=== PATIENT | female | born 1985 | race Caucasian/White ===

== ENCOUNTER 2018-07-04 08:57 | Emergency (ER) | payer OTHER ==
[2018-07-04] MEDS ORDERED: SODIUM CHLORIDE 0.9% 1,000 ML IV ONE (09:19)
--- NOTE | 2018-07-04 09:21 | ED Physician Documentation ---
History of Present Illness - Stated complaint Stated Complaint: SYNCOPE - Chief complaint Chief Complaint: Neuro - Additonal information Additional information: hx from pt 33 f denies preg has an IUD recent fever chills myalgias flu like sx at work today walking around the [employer] and felt faint sat down did have brief syncope no injury was witnessed no reported loss of breathing pulse denies AH CP AP no NVD ate breakfast (cinnamon roll) has been drinking fluids no recent travel no leg swelling pain Review of Systems Constitutional: reports: Fever, Chills, Myalgias, Fatigue Throat: denies: Sore throat Respiratory: denies: Cough GI: denies: Abdominal Pain, Nausea, Vomiting, Diarrhea : reports: Control (IUD). denies: Now EGA Neurologic: reports: Generalized weakness, Syncope. denies: Focal weakness, Numbness, Seizure, Headache, Head injury Endocrine: denies: Easy bruising / bleeding Immunocompromised: denies: Immunocompromised PD PAST MEDICAL HISTORY - Allergies Allergies/Adverse Reactions: Allergies Allergy/AdvReac Type Severity Reaction Status Date / Time bupropion [From Wellbutrin] Allergy Hallucinati Verified 07/04/18 09:05 ons PD ED PE NORMAL - Vitals Vital signs reviewed: Yes - General General: Alert and oriented X 3 - HEENT HEENT: Atraumatic, PERRL, Moist mucous membranes, Pharynx benign - Neck Neck: Supple, no meningeal sign - Cardiac Cardiac: RRR, No murmur - Respiratory Respiratory: No respiratory distress, Clear bilaterally - Abdomen Abdomen: Non tender - Derm Derm: Normal color - Extremities Extremities: No edema, No calf tenderness / cord - Neuro Neuro: Alert and oriented X 3 Results - Vitals Vitals: Vital Signs - 24 hr 07/04/18 07/04/18 09:03 10:35 Temperature 36.8 C Heart Rate 88 74 Respiratory 18 17 Rate Blood Pressure 103/54 L 105/68 O2 Saturation 100 100 Oxygen O2 Source Room air - EKG (time done) 0910 Rate: Rate (enter#) (79) Rhythm: NSR Intervals: Normal FL QRS: Normal Ischemia: Normal ST segments - Labs Labs: Laboratory Tests 07/04/18 07/04/18 07/04/18 09:16 09:20 09:20 WBC 11.6 H RBC 4.28 Hgb 12.7 Hct 37.7 MCV 88.2 MCH 29.6 MCHC 33.5 RDW 13.3 Plt Count 237 MPV 8.3 Neut # (Auto) 9.4 H Lymph # (Auto) 1.2 L [place] # (Auto) 0.9 Eos # (Auto) 0.1 Baso # (Auto) 0.0 Absolute Nucleated RBC 0.00 Nucleated RBC % 0.0 Sodium 133 L Potassium 3.3 L Chloride 104 Carbon Dioxide 23 Anion Gap 6.0 BUN 12 Creatinine 0.7 Estimated GFR (MDRD) 98 Glucose 155 H POC Whole Bld Glucose 154 H Calcium 8.5 Total Bilirubin 0.3 AST 31 ALT 37 Alkaline Phosphatase 57 Total Protein 7.2 Albumin 4.2 Globulin 3.0 Albumin/Globulin Ratio 1.4 Lipase 19 L Serum HCG, Qual Urine Color Urine Clarity Urine pH Ur Specific [place] Urine Protein Urine Glucose (UA) Urine Ketones Urine Occult Blood Urine Nitrite Urine Bilirubin Urine Urobilinogen Ur Leukocyte Esterase Urine RBC Urine WBC Ur Squamous Epith Cells Urine Bacteria Urine Mucus Ur Microscopic Review Urine Culture Comments Urine HCG, Qual Influenza A (Rapid) Influenza B (Rapid) 07/04/18 07/04/18 07/04/18 09:20 09:20 10:50 WBC RBC Hgb Hct MCV MCH MCHC RDW Plt Count MPV Neut # (Auto) Lymph # (Auto) [place] # (Auto) Eos # (Auto) Baso # (Auto) Absolute Nucleated RBC Nucleated RBC % Sodium Potassium Chloride Carbon Dioxide Anion Gap BUN Creatinine Estimated GFR (MDRD) Glucose POC Whole Bld Glucose Calcium Total Bilirubin AST ALT Alkaline Phosphatase Total Protein Albumin Globulin Albumin/Globulin Ratio Lipase Serum HCG, Qual NEGATIVE Urine Color BROWN Urine Clarity SL. CLOUDY Urine pH 6.5 Ur Specific [place] 1.010 Urine Protein 30 H Urine Glucose (UA) NEGATIVE Urine Ketones NEGATIVE Urine Occult Blood LARGE H Urine Nitrite NEGATIVE Urine Bilirubin NEGATIVE Urine Urobilinogen 0.2 (NORMAL) Ur Leukocyte Esterase TRACE H Urine RBC 11-25 H Urine WBC 11-25 H Ur Squamous Epith Cells MANY Squamous H Urine Bacteria Few Urine Mucus Few Strands Ur Microscopic Review INDICATED Urine Culture Comments NOT INDICATED Urine HCG, Qual NEGATIVE Influenza A (Rapid) Negative Influenza B (Rapid) Negative PD MEDICAL DECISION MAKING - ED course ED course: EKG fine neg HCG urine contaminated (on menses) nl labs no anemia nl lytes etc pt feels fine now will dc to rest today if recurrent sx next steps would be event monitor and echo Departure - Departure Disposition: Home, Self Care Clinical Impression: Syncope Qualifiers: Syncope type: unspecified Qualified Code(s): R55 - Syncope and collapse Condition: Good Instructions: ED Fainting Unkn Cause Follow-Up: GEOFF Michelle [Provider Group] Comments: All your tests came back fine Your heart is in a normal rhythm You are not You are not anemic Your electrolytes are fine I am not sure why you passed out today Sometimes with standing and walking ones blood pressure can drop and cause fainting. I think it is safe for you to go home. Recommend you rest and take it easy for the rest of the day. If you have more similar symptoms in the future you will need further work up beyond what we can do in an ER visit - such as a wear at home heart monitor and an ultrasound of your heart Please follow up with [facility] for a recheck and duty status tomorrow
[2018-07-04 09:30] LABS: BASOPHILS % (AUTO) 0.4 %; EOSINOPHILS # (AUTO) 0.1 10^3/uL (0.0-0.7); EOSINOPHILS % (AUTO) 1.1 %; HGB - HEMOGLOBIN 12.7 g/dL (12.0-16.0); LYMPHOCYTES # (AUTO) 1.2 10^3/uL (1.5-3.5); LYMPHOCYTES % (AUTO) 10.1 %; MEAN CORPUSCULAR HEMOGLOBIN 29.6 pg (27.0-31.0); MEAN CORPUSCULAR HGB CONC 33.5 g/dL (32.0-36.0); MEAN CORPUSCULAR VOLUME 88.2 fL (81.0-99.0); MEAN PLATELET VOLUME 8.3 fL (7.9-10.8); MONOCYTES # (AUTO) 0.9 10^3/uL (0.0-1.0); MONOCYTES % (AUTO) 7.9 %; NEUTROPHILS # (AUTO) 9.4 10^3/uL (1.5-6.6); NEUTROPHILS % (AUTO) 80.5 %; PLT - PLATELET COUNT 237 10^3/uL (130-450); RED BLOOD COUNT 4.28 10^6/uL (4.20-5.40); RED CELL DISTRIBUTION WIDTH 13.3 % (12.0-15.0); WHITE BLOOD COUNT 11.6 x10^3/uL (4.8-10.8)
[2018-07-04 09:43] LABS: ALBUMIN 4.2 g/dL (3.2-5.5); ALBUMIN/GLOBULIN RATIO 1.4 (1.0-2.2); BILIRUBIN,TOTAL 0.3 mg/dL (0.2-1.0); CALCIUM 8.5 mg/dL (8.5-10.3); CREATININE 0.7 mg/dL (0.4-1.0); TOTAL PROTEIN 7.2 g/dL (6.7-8.2)
[2018-07-04 10:57] LABS: BILIRUBIN,URINE NEGATIVE (NEGATIVE); GLUCOSE, URINE (UA) NEGATIVE (NEGATIVE); KETONES,URINE (UA) NEGATIVE (NEGATIVE); LEUKOCYTE ESTERASE, URINE TRACE (NEGATIVE); NITRITE,URINE NEGATIVE (NEGATIVE); OCCULT BLOOD,URINE LARGE (NEGATIVE); PH,URINE 6.5 PH (5.0-7.5); PROTEIN,URINE 30 mg/dL (NEGATIVE); UROBILINOGEN,URINE 0.2 (NORMAL) E.U./dL (NORMAL)
[2018-07-04 11:00] LABS: CLARITY,URINE SL. CLOUDY (CLEAR)
[2018-07-04 11:02] LABS: HCG UR QUAL NEGATIVE
[2018-07-04 11:19] LABS: BACTERIA,URINE Few /HPF (None Seen); MUCUS,URINE Few Strands; SQUAMOUS EPITHELIAL CELL,UR MANY Squamous (<= Few)
[2018-07-04 11:20] LABS: HCG,QUALITATIVE BLOOD NEGATIVE
[2018-07-04 12:40] VITALS: BP 117/66
== END 2018-07-04 12:48 | disposition home or self-care (01) ==
LOC: ED 08:57
DX: R55 Syncope and collapse (principal)
CPT/HCPCS: 36415; 80053; 81001; 81003; 81025; 83690; 84703; 85025; 87086; 87275; 87276; 93005; 96360; 99283; 99284